=== PATIENT | female | born 1990 | race American Indian/Alaskan Native ===

== ENCOUNTER 2016-11-01 06:01 | Inpatient (IN) | payer MEDICAID ==
[2016-11-01] MEDS ORDERED: MINERAL OIL PO PRN (08:00)
[2016-11-01] MEDS ORDERED: ePHEDrine SULFATE IV PRN ×2 (08:00→11:59)
[2016-11-01] MEDS ORDERED: PITOCin/NS 20 UNIT/1000ML DRIP 20 UNITS/1,000 ML BAG IV SCH (08:00)
[2016-11-01] MEDS ORDERED: LACTATED RINGERS 1,000 ML IV SCH (08:00)
[2016-11-01 08:05] LABS: Hematocrit 36.1 % (30.3-42.9); Hemoglobin 11.9 gm/dl (10.1-14.3); Mean Corpuscular HGB Conc 33 % (30-34); Mean Corpuscular Hemoglobin 30 pg (28-32); Mean Corpuscular Volume 91 fl (79-97); Platelet Count 199 K/mm3 (140-440); Red Blood Count 3.95 M/mm3 (3.65-5.03); Red Cell Distribution Width 13.2 % (13.2-15.2); White Blood Count 11.8 K/mm3 (4.5-11.0)
[2016-11-01] MEDS ORDERED: POLYCILLIN/NS 2 GM/100 ML 2 GM/100 ML BAG IV ONE (08:15)
--- NOTE | 2016-11-01 08:24 | History and Physical Report ---
History of Present Illness Date of examination: 11/01/16 Date of admission: 11/01/16 06:02 Chief complaint: I'm brenden History of present illness: 26 y/o , now 40 weeks gestation, in active labor. Prenantal care at [facility] since 21 weeks gestation.GBS positive. Past History Past Medical History: no pertinent history Past Surgical History: appendectomy, D&C Family/Genetic History: hypertension Social history: no significant social history - Obstetrical History Expected Date of Delivery: 11/01/16 Actual Gestation: 40 Week(s) 0 Day(s) : 3 Para: 1 Hx # Term Pregnancies: 1 Induced : 1 Number of Living Children: 1 Medications and Allergies Allergies Allergy/AdvReac Type Severity Reaction Status Date / Time No Known Allergies Allergy Verified 11/01/16 07:53 Active Meds: Active Medications Ephedrine Sulfate (Ephedrine Sulfate) 10 mg IV Q2M PRN PRN Reason: Hypotension Stop: 11/02/16 07:59 Fentanyl (Sublimaze) 100 mcg IV Q2H PRN PRN Reason: Labor Pain Lactated Ringer's (Lactated Ringers) 1,000 mls @ 125 mls/hr IV DIRECT JOHN Oxytocin/Sodium Chloride (Pitocin/Ns 20 Unit/1000ml Drip) 20 units in 1,000 mls @ 125 mls/hr IV DIRECT JOHN Oxytocin/Sodium Chloride (Pitocin/Ns 30 Unit/500ml) 30 units in 500 mls @ 1 mls /hr IV TITR JOHN; 1 MILLIUNITS/MIN PRN Reason: Protocol Ampicillin Sodium (Polycillin/Ns 1 Gm/50 Ml) 1 gm in 50 mls @ 100 mls/hr IV Q4HR JOHN PRN Reason: Protocol Ampicillin Sodium (Polycillin/Ns 2 Gm/100 Ml) 2 gm in 100 mls @ 100 mls/hr IV ONCE ONE PRN Reason: Protocol Stop: 11/01/16 09:14 Lidocaine (Xylocaine 2%) 20 ml INFILTRATI ONCE ONE Stop: 11/01/16 08:31 Mineral Oil (Mineral Oil) 30 ml PO QHS PRN PRN Reason: Constipation Terbutaline Sulfate (Brethine) 0.25 mg SUB-Q ONCE PRN PRN Reason: Hyperstimulation/Hypertonicity Stop: 11/01/16 08:31 Terbutaline Sulfate (Brethine) 0.25 mg IVP ONCE PRN PRN Reason: Hyperstimulation/Hypertonicity Stop: 11/01/16 09:01 Review of Systems All systems: negative - Vital Signs Vital signs: Vital Signs Pulse Pulse Ox 76 100 11/01/16 08:13 11/01/16 08:13 Temp Pulse Resp BP Pulse Ox 71 93 11/01/16 08:17 11/01/16 08:17 - Physical Exam Breasts: Positive: deferred Cardiovascular: Regular rate Lungs: Positive: Clear to auscultation Abdomen: Positive: soft Genitourinary (Female): Positive: normal external genitalia Vulva: both: normal Vagina: Positive: normal moisture Uterus: Positive: enlarged Anus/Rectum: Positive: normal perianal skin Deep Tendon Reflex Grade: Normal +2 - Obstetrical FHR: category 1 Uterine Contraction Monitor Mode: External Cervical Dilatation: 5 Cervical Effacement Percentage: 80 station: -1 Uterine Contraction Frequency (min): q3-4 Results Result Diagrams: 11/01/16 07:36 Abnormal lab results 11/01/16 Range/Units 07:36 WBC 11.8 H (4.5-11.0) K/mm3 All other labs normal. Assessment and Plan A: Active labor at 40 weeks P: Expect GBS +, AMP
[2016-11-01] MEDS ORDERED: XYLOCAINE 2% INFILTRATI ONE (08:30)
[2016-11-01] MEDS ORDERED: BRETHINE SUB-Q PRN (08:30)
[2016-11-01] MEDS: PITOCin/NS 30 UNIT/500ML 30 UNITS/500 ML BAG IV SCH ×2 (08:36→09:34)
[2016-11-01] MEDS: SUBLIMAZE IV PRN ×2 (09:00→10:53)
[2016-11-01] MEDS ORDERED: BRETHINE IVP PRN (09:00)
[2016-11-01] MEDS ORDERED: fentaNYL-BUPIV 2 MCG/ML-0.125% 200 MCG/100 ML BAG EPIDURAL ONE (11:15)
--- NOTE | 2016-11-01 11:58 | Anesthesia Consultation ---
Anesthesia Consult and Med Hx Date of service: 11/01/16 - Airway Anesthetic Teeth Evaluation: Good ROM Head & Neck: Adequate Mental/Hyoid Distance: Adequate Mallampati Class: Class II Intubation Access Assessment: Good - Pulmonary Exam CTA: Yes - Cardiac Exam Cardiac Exam: No Murmur - Pre-Operative Health Status ASA Pre-Surgery Classification: ASA2 Proposed Anesthetic Plan: Epidural - Pulmonary Hx Asthma: No COPD: No Hx Pneumonia: No - Cardiovascular System Hx Hypertension: No - Central Nervous System Hx Seizures: No Hx Psychiatric Problems: No - Endocrine Hx Renal Disease: No Hx End Stage Renal Disease: No Hx Hypothyroidism: No Hx Hyperthyroidism: No - Hematic Hx Anemia: No Hx Sickle Cell Disease: No - Other Systems Hx Alcohol Use: No
[2016-11-01] MEDS ORDERED: NARCAN 2 MG/2 ML IV PRN (11:59)
[2016-11-01] MEDS ORDERED: fentaNYL-BUPIV 2 MCG/ML-0.125% 200 MCG/100 ML BAG EPIDURAL SCH (12:00)
[2016-11-01] MEDS ORDERED: POLYCILLIN/NS 1 GM/50 ML 1 GM/50 ML BAG IV SCH (12:17)
[2016-11-01] MEDS ORDERED: LANSINOH TP PRN (14:32)
[2016-11-01] MEDS ORDERED: NORCO 5/325 PO PRN (14:32)
[2016-11-01] MEDS ORDERED: BENADRYL PO PRN (14:32)
[2016-11-01] MEDS ORDERED: PHENERGAN PO PRN (14:32)
[2016-11-01] MEDS ORDERED: TYLENOL PO PRN (14:32)
--- NOTE | 2016-11-01 14:38 | Procedure Note ---
OB Delivery Note - Delivery Date of Delivery: 11/01/16 Surgeon: AGNIESZKA CANO Estimated blood loss: 200cc - Vaginal Delivery presentation: vertex Delivery position: OA Intrapartum events: none Delivery induction: none Delivery augmentation: rupture of membranes, pitocin Delivery monitor: external FHT, external uterine Route of delivery: Delivery placenta: spontaneous Delivery cord: 3 umbilical vessels Episiotomy: none Delivery laceration: none Anesthesia: intravenous, epidural Delivery comments: of a viable male 6-15 oz @ 1413 on 11/01/16 over intact perineum. Placenta delivered 3VCI. EBL 200 cc. FF @ U-2, lochia small. MOther and baby doing well. - Infant A at 1 minute: 8 at 5 minutes: 9 Gender: Male (6#-15oz)
[2016-11-01] MEDS ORDERED: SODIUM CHLORIDE FLUSH SYRINGE 10 ML IV SCH (15:00)
[2016-11-01] MEDS: MOTRIN PO SCH (22:22)
[2016-11-02 02:31] LABS: Hematocrit 31.9 % (30.3-42.9); Hemoglobin 10.4 gm/dl (10.1-14.3)
[2016-11-02] MEDS: MOTRIN PO SCH ×4 (05:03→23:35)
--- NOTE | 2016-11-02 10:02 | Progress Note ---
Assessment and Plan A: PPD 1 VSS P: Postpatum care D/C tomorrow Undecided on contraception Subjective - Subjective Date of service: 11/02/16 Principal diagnosis: PPD1 Interval history: 26 yo @ 40 weeks poresented to L&D in active labor. Delivered on 11/01/2016 @ 1413. Patient reports: appetite normal, voiding normally, pain well controlled, ambulating normally Marcellus: other (Doing well but under double phototherapy) Objective - Vital Signs Latest vital signs: Vital Signs Temp Pulse Pulse Resp BP BP Pulse Ox 11/02/16 09:45 97.7 F 75 18 100/54 11/02/16 00:20 98.6 F 78 18 103/59 11/01/16 21:00 98.2 F 67 18 116/64 11/01/16 15:37 72 103/56 11/01/16 14:52 69 102/58 11/01/16 14:37 92 H 118/63 11/01/16 14:35 80 93/50 11/01/16 14:08 121 H 138/98 11/01/16 13:53 67 100/58 11/01/16 13:38 68 114/63 11/01/16 13:23 65 111/51 11/01/16 13:06 90 110/61 11/01/16 12:54 72 108/71 11/01/16 12:45 73 121/66 11/01/16 12:44 70 115/68 11/01/16 12:42 63 126/68 11/01/16 12:40 54 L 112/59 11/01/16 12:37 62 113/59 11/01/16 12:35 70 115/62 11/01/16 12:34 70 120/68 11/01/16 12:32 69 117/64 11/01/16 12:30 66 114/64 11/01/16 12:27 65 111/56 11/01/16 12:26 63 115/62 11/01/16 12:23 65 111/62 11/01/16 12:21 67 112/61 11/01/16 12:20 57 L 110/57 11/01/16 12:15 72 103/51 96 11/01/16 12:10 79 111/70 73 L 11/01/16 12:08 73 115/68 11/01/16 12:05 84 98 11/01/16 12:02 80 113/81 87 11/01/16 12:00 65 100 11/01/16 10:53 20 Intake and Output 11/01/16 11/02/16 11/02/16 22:59 06:59 14:59 Intake Total 660 Output Total 700 800 Balance -700 -140 Intake: Intake, Free Water 660 Output: Urine 700 800 Void 700 800 Other: Total, Output Amount 700 800 # Voids Void 1 1 - Exam Cardiovascular: Present: Regular rate Lungs: Present: Normal air movement Vulva: both: normal (scant lochia) Uterus: Present: fundal height below umbilicus Extremities: Present: normal Deep Tendon Reflex Grade: Normal +2 - Allied health notes Allied health notes reviewed: nursing
--- NOTE | 2016-11-02 10:04 | Discharge Summary ---
Providers - Providers Date of Admission: 11/01/16 06:02 Date of discharge: 11/03/16 Attending physician: SUMEET TRIVEDI MD Primary care physician: SUMEET TRIVEDI MD Hospitalization Reason for admission: active labor Delivery: Episiotomy: none Laceration: none Other procedures: none complications: none Discharge diagnosis: IUP at term delivered [place] baby: male Hospital course: uneventful Condition at discharge: Good Disposition: DC-01 TO HOME OR SELFCARE Plan - Provider Discharge Summary Activity: routine, no sex for 6 weeks, no heavy lifting 4 weeks, no strenuous exercise Diet: routine Instructions: routine Additional instructions: [] Smoking cessation referral if applicable(refer to patient education folder for contact #) [] Refer to [facility] Booklet Call your doctor immediately for: * Fever > 100.5 * Heavy vaginal bleeding ( >1 pad per hour) * Severe persistent headache * Shortness of breath * Reddened, hot, painful area to leg or breast * Drainage or odor from incision. * Keep incision clean and dry at all times and follow doctor's instructions regarding bathing/showering - Follow up plan Follow up: [facility] [Provider Group] - 6 Weeks
--- NOTE | 2016-11-02 15:45 | Progress Note ---
Subjective Date of service: 11/02/16 Principal diagnosis: PPD1 Interval history: 1st day after normal vaginal delivery Patient is in the bed, relatively comfortable. Pain is well controlled with pain meds. Ambulated well. No residual neurological deficit. No anesthesia complications Objective - Constitutional Vitals: Vital Signs - 12hr 11/02/16 11/02/16 09:45 13:24 Temperature 97.7 F 98.3 F Pulse Rate [ 75 74 Right] Respiratory 18 18 Rate Blood Pressure 100/54 106/60 [Right Arm] - Labs CBC & Chem 7: 11/02/16 01:07
[2016-11-03] MEDS: MOTRIN PO SCH ×3 (05:59→18:15)
[2016-11-03 20:55] VITALS: BP 108/60
== END 2016-11-03 22:30 | disposition home or self-care (01) | DRG 775 ==
LOC: TRG 06:01 → LD 06:02 → TRG 06:42 → OB 16:28
PROVIDERS: ADMIT Obstetrics & Gynecology; ATTEND Obstetrics & Gynecology
PROC: 10E0XZZ Delivery of Products of Conception, External Approach (ICD-10-PCS; principal; 2016-11-01)
PROC: 3E0R3BZ Introduction of Anesthetic Agent into Spinal Canal, Percutaneous Approach (ICD-10-PCS; 2016-11-01)
PROC: 00HU33Z Insertion of Infusion Device into Spinal Canal, Percutaneous Approach (ICD-10-PCS; 2016-11-01)
DX: O99.824 Streptococcus B carrier state complicating childbirth (principal); Z3A.40 40 weeks gestation of pregnancy; Z37.0 Single live birth
CPT/HCPCS: 36415; 85014; 85018; 85027; 86850; 86900; 86901; 99211; A6250; G0463; J0290; J2590; J3010; J7120